=== PATIENT | female | born 1970 | race Two or more races ===

== ENCOUNTER → 2019-12-16 | Day surgery (SDC) | payer OTHER ==
--- NOTE | 2019-12-17 17:08 | PATH ---
Surgical Pathology Report Patient Name: TOY SANTO [facility]. Rec. #: [id number] /Age/Gender: 1970 (Age: 49) / F Account: [id number] Location: [facility] Taken: 12/16/2019 Received: 12/16/2019 Reported: 12/17/2019 Physicians: Ana Conti M.D. Specimen(s) Received A: RIGHT BREAST SPECIMEN WITH CALCIFICATIONS B: RIGHT BREAST SPECIMEN WITHOUT CALCIFICATIONS Clinical History Nonpalpable lesion Mammographic findings: Microcalcifications, suspicious Final Diagnosis A. RIGHT BREAST SPECIMEN WITH CALCIFICATIONS, STEREOTACTIC BIOPSY: BENIGN BREAST TISSUE WITH USUAL DUCTAL HYPERPLASIA (UDH), PAPILLARY AND CYSTIC APOCRINE METAPLASIA, DILATED DUCTS, MICROCYSTS, STROMAL FIBROSIS, AND MICROCALCIFICATIONS. B. RIGHT BREAST SPECIMEN WITHOUT CALCIFICATIONS, STEREOTACTIC BIOPSY: BENIGN BREAST TISSUE WITH USUAL DUCTAL HYPERPLASIA (UDH), STROMAL FIBROSIS, AND MICROCALCIFICATIONS. Electronically Signed Valentin Chicas M.D. Gross Description A. Received in formalin labeled "right breast specimen with calcifications," is a 2.1 x 2.0 x 0.3 cm aggregate of multiple majano-yellow, irregular to cylindrical portions of fibroadipose tissue. The formalin is filtered and the specimen is entirely submitted in one cassette. B. Received in formalin labeled "right breast without calcifications," are 3 majano-yellow, cylindrical portions of fibroadipose tissue ranging from 0.8-2.5 cm in length and averaging 0.3 cm in diameter. The specimens are submitted in toto in one cassette. Time to formalin fixation: 7 minutes Total formalin fixation time: Approximately 8 hours. /12/16/2019 [facility]12/16/2019
== END | disposition home or self-care (01) ==
LOC: FMAMMOTONE 08:41
PROVIDERS: ATTEND Obstetrics & Gynecology
PROC: 0HBT3ZX Excision of Right Breast, Percutaneous Approach, Diagnostic (ICD-10-PCS; principal; 2019-12-16)
DX: N60.11 Diffuse cystic mastopathy of right breast (principal); N60.31 Fibrosclerosis of right breast; N60.81 Other benign mammary dysplasias of right breast; N64.89 Other specified disorders of breast; R92.8 Other abnormal and inconclusive findings on diagnostic imaging of breast
CPT/HCPCS: 19081; 76098-TC-FY; 87899; A4648